=== PATIENT | male | born 1955 | race Caucasian/White ===

== ENCOUNTER 2018-12-16 01:50 | Outpatient (CLI) | payer BC, SELFPAY ==
[2018-12-16 11:17] LABS: Calculated LDL 165 mg/dL; Cholesterol 242 mg/dL (50-200); HDL Cholesterol 63 mg/dL (40-60); Triglyceride 72 mg/dL (30-150)
[2018-12-20 08:09] LABS: PSA, Screening 0.4 ng/mL (0.0-4.5)
== END 2018-12-16 02:10 ==
PROVIDERS: PCP Emergency Medicine; Visit Provider Emergency Medicine
DX: Z00.00 Encounter for general adult medical examination without abnormal findings (principal); Z13.220 Encounter for screening for lipoid disorders; Z12.5 Encounter for screening for malignant neoplasm of prostate
CPT/HCPCS: 36415; 80061; 84153

== ENCOUNTER 2019-11-24 20:21 | Outpatient (REF) | payer BC, SELFPAY ==
[2019-11-27 14:57] LABS: Calculated LDL 186 mg/dL (<100); Cholesterol 270 mg/dL (<200); HDL Cholesterol 55 mg/dL (40-60); Triglyceride 145 mg/dL (<150)
== END 2019-11-24 20:41 ==
LOC: LBN 20:21
PROVIDERS: PCP Emergency Medicine; Visit Provider Emergency Medicine
DX: E78.5 Hyperlipidemia, unspecified (principal)
CPT/HCPCS: 80061

== ENCOUNTER 2020-12-05 16:10 | Outpatient (REF) | payer BC, SELFPAY ==
[2020-12-05 15:27] LABS: Calculated LDL 181 mg/dL (<100); Cholesterol 263 mg/dL (<200); HDL Cholesterol 62 mg/dL (40-60); Triglyceride 102 mg/dL (<150)
== END 2020-12-05 16:11 | disposition home or self-care (01) ==
LOC: LBN 16:10
PROVIDERS: PCP Emergency Medicine; Visit Provider Emergency Medicine
DX: E78.5 Hyperlipidemia, unspecified (principal)
CPT/HCPCS: 80061

== ENCOUNTER 2021-06-16 01:30 | Outpatient (CLI) | payer BC, SELFPAY ==
[2021-06-16 13:02] LABS: Calculated LDL 104 mg/dL (<100); Cholesterol 185 mg/dL (<200); HDL Cholesterol 68 mg/dL (40-60); Triglyceride 68 mg/dL (<150)
[2021-06-18 12:23] LABS: Apolipoprotein B, S 81 mg/dL
== END 2021-06-16 01:31 | disposition home or self-care (01) ==
LOC: LOS 01:30
PROVIDERS: PCP Family Medicine; Visit Provider Internal Medicine Cardiovascular Disease
DX: E78.00 Pure hypercholesterolemia, unspecified (principal)
CPT/HCPCS: 36415; 80061; 82172

== ENCOUNTER 2021-12-14 09:36 | Emergency (ER) | payer BC, SELFPAY ==
[2021-12-14 10:07] VITALS: BP 154/84; PULSE 74; RESP 20; TEMP 36.7; O2SAT 99
--- NOTE | 2021-12-14 10:30 | DI.CT_ITS ---
Exam(s) CT ABDOMEN PELVIS W EXAM: CT ABDOMEN PELVIS W CLINICAL HISTORY: hernia, left groin pain. TECHNIQUE: Imaging Protocol: Axial computed tomography images with coronal and sagittal reformatted images were created and reviewed CONTRAST MATERIAL: Intravenous: Omnipaque 100cc Oral: None COMPARISON: No exams were available for comparison FINDINGS: VISUALIZED LUNG BASES: No nodules nor pleural effusions evident. ABDOMEN: There is no ascites. LIVER: There are no focal hepatic lesions evident . GALLBLADDER/BILIARY: No obvious gallbladder pathology. CBD is not dilated. PANCREAS: No evidence of pancreatic mass nor dilatation of the pancreatic duct. SPLEEN: Spleen is not enlarged. No obvious intrasplenic lesions. Splenic and portal veins are paten t. ADRENALS: There are no significant adrenal masses. KIDNEYS:No cysts evident. No solid renal masses. No calculi nor hydronephrosis.. ABDOMINAL AORTA: Calcified but not enlarged. Also no dilatation of the iliac arteries. LYMPH NODES:There is no retroperitoneal nor paraaortic adenopathy. ABDOMINAL WALL: There is right inguinal hernia mesh noted. No hernia on the right side. However, th ere is a fat only containing hernia inguinal hernia on the left side which measures 3.5 cm length by 2.0 cm wide. No bowel loops in the hernia sac. GI: There is no evidence of bowel obstruction, free air, nor abscess. PELVIS: GI: No evidence of appendicitis.No evidence of sigmoid diverticulitis. LYMPH NODES: There is no intrapelvic nor inguinal adenopathy. REPRODUCTIVE: Prostate not enlarged. Seminal vesicles unremarkable. URINARY BLADDER: No calculi nor obvious masses evident OSSEOUS: No significant osseous lesions. Advanced disc space narrowing at L5-S1 and L3-4 levels. Mild degenerative anterolisthesis L4 upon L5 . IMPRESSION: 1. There is a fat only containing left inguinal hernia. Hernia sac measures 3.5 cm length by 2 cm wi de. 2. There is evidence of right inguinal hernia repair. 3. 4. RADIATION DOSE DELIVERED: 852.42mGy.cm Total DLP DATA REPOSITORY: All CT scans at this facility are submitted to the National Radiology Data Registry (NRDR) Dose Index Registry (DIR) with the [employer] (ACR). RADIATION OPTIMIZATION: All CT scans at this facility use at least one of these dose optimization te chniques: automated exposure control; mA and/or kV adjustment per patient size (includes targeted exa ms where dose is matched to clinical indication); or iterative reconstruction.
[2021-12-14 11:22] LABS: Abs Immature Grans 0.01 10^3/uL (0.0-0.06); Absolute Basophil Count 0.01 10^3/uL (0.0-0.2); Absolute Eosinophil Count 0.04 10^3/uL (0.0-0.7); Absolute Lymphocyte Count 1.95 10^3/uL (1.2-3.4); Absolute Monocyte Count 0.55 10^3/uL (0.1-0.8); Absolute Neutrophil Count 2.76 10^3/uL (1.2-6.7); Basophils % 0.2; Eosinophils % 0.8; HCT 43.4 % (40.0-50.0); HGB 15.2 g/dL (13.5-17.5); Immature Grans % 0.2; Lymphocytes % 36.7; MCH 33.9 pg (27.0-33.0); MCV 97 fL (80-95); MPV 9.6 fL (8.0-11.0); Monocytes % 10.3; Neutrophils % 51.8; Platelet Count 206 10^3/uL (130-400); RBC 4.49 10^6/uL (4.36-5.78); RDW 11.8 % (11.8-14.1); RDW-SD 42.2 fL; WBC 5.32 10^3/uL (4.4-10.8)
[2021-12-14] MEDS: ACETAMINOPHEN 1,000 MG/100 ML BTL 400 MG IVPB (11:28)
[2021-12-14] MEDS: HYDROmorphone 2 MG/ML SYR 0.5 MG IVP (11:29)
[2021-12-14] MEDS: Normal Saline Flush 10 ML SYR IVP (11:32)
[2021-12-14] MEDS: Omnipaque 350 MG/ML 100 ML BTL IJ (11:33)
[2021-12-14 11:37] LABS: ALT 20 U/L (16-63); AST 15 U/L (15-37); Alkaline Phosphatase 70 U/L (46-116); Anion Gap 5.9 mmol/L (3-11); BUN 18 mg/dL (7-18); Bilirubin, Total 0.5 mg/dL (0.2-1.0); CO2 30.1 mmol/L (21.0-32.0); CREATININE 1.1 mg/dL (0.70-1.30); Calcium 8.8 mg/dL (8.5-10.1); Chloride 107 mmol/L (98-107); Estimated GFR 74.04 (mL/min/1.73m2); Glucose 103 mg/dL (74-106); Lipase 66 U/L (73-393); Potassium 4.3 mmol/L (3.5-5.1); Sodium 143 mmol/L (136-145); Total Protein 6.9 g/dL (6.4-8.2)
--- NOTE | 2021-12-14 12:16 | DI.VRAD_ITS ---
PROCEDURE INFORMATION: Exam: CT Abdomen And Pelvis With Contrast Exam date and time: 12/14/2021 12:40 PM Age: 66 years old Clinical indication: Other: Hernia, left groin pain TECHNIQUE: Imaging protocol: Computed tomography of the abdomen and pelvis with contrast. Radiation optimization: All CT scans at this facility use at least one of these dose optimization techniques: automated exposure control; mA and/or kV adjustment per patient size (includes targeted exams where dose is matched to clinical indication); or iterative reconstruction. Contrast material: OMNIPAQUE 350; Contrast volume: 100 ml; Contrast route: INTRAVENOUS (IV); COMPARISON: No relevant prior studies available. FINDINGS: Lungs: The visualized lung bases demonstrate minor dependent atelectasis. Liver: Normal. No mass. Gallbladder and bile ducts: No gallstones are evident, but ultrasound would be more sensitive. No gross biliary ductal dilatation. Pancreas: Normal. No ductal dilation. Spleen: Normal. No splenomegaly. Adrenal glands: Normal. No mass. Kidneys and ureters: Normal. No hydronephrosis. Stomach and bowel: The unopacified small bowel is not significantly distended to suggest obstruction. The large bowel is grossly unremarkable in appearance. Appendix: The appendix appears normal. Intraperitoneal space: No free air or significant free fluid. Vasculature: The abdominal aorta is nonaneurysmal. Atherosclerotic vascular calcifications are noted. Lymph nodes: Unremarkable. No enlarged lymph nodes. Urinary bladder: Unremarkable. Reproductive: Surgical clips are present in the scrotum. Bones/joints: Degenerative changes involve the spine, sacroiliac joints and hips. Soft tissues: There are operative changes of right inguinal hernia repair. A small fat containing left inguinal hernia is present. IMPRESSION: 1. Small fat containing left inguinal hernia. 2. Operative changes of right inguinal hernia repair. Dictated and Authenticated by: Jus Vasquez MD. Ordering:CLEM Quesada MD
[2021-12-14 16:57] VITALS: BP 154/84; PULSE 74; RESP 20; TEMP 36.7; O2SAT 99
--- NOTE | 2021-12-15 10:25 | SCONE_ITS ---
Date of service: 12/14/21 Time of Service: 15:00 Assessment and Plan Assessment and plan (1) Left inguinal hernia: Status: Chronic Assessment and plan: Mr. Mejia is a pleasant 66-year-old gentleman with left inguinal pain as well as lower extremity pain. I think his pain is multifactorial. Part of his pain is most likely from his inguinal hernia and it may have been incarcerated last night but certainly is not today. I think it safe for him to get discharged on Tylenol and ibuprofen and then have him come back as an outpatient for a repair. He already has an appointment with Dr. Villegas in our office on Wednesday. I think the lower extremity pain that he is having is most likely due to his spinal stenosis. Recommend no more lifting until his hernia has been repaired. We will see him in the office on Wednesday and schedule him for surgery. (2) Lumbar back pain with radiculopathy affecting left lower extremity: Status: Chronic History of Present Illness Narrative: Mr Mejia is a pleasant 66-year-old gentleman who comes into the emergency department today with worsening left lower quadrant/groin pain. He complains of pain shooting down his leg medially and laterally. He has a known left inguinal hernia which has bothered him occasionally but now it is much worse. He states last night it was quite painful and it was hard for him to sleep. He has been doing some lifting lately because they are packing for a move. He denies any fevers, nausea, vomiting or changes in bowel habits. He does have a history of spinal stenosis. CT scan was done which does show a left inguinal hernia. There is no bowel or fat within the hernia defect. Consults Consult date: 12/14/21 Requesting physician: Dipak Bansal Review of Systems All systems reviewed & are unremarkable except as noted in HPI and below PFSH All Active Problems Lumbar back pain with radiculopathy affecting left lower extremity (Chronic) Degenerative joint disease (DJD) of lumbar spine (Chronic) Left inguinal hernia (Chronic) Hyperlipemia (Chronic) Acquired hallux rigidus (Chronic) Surgical History S/P arthroscopy of right shoulder Labral tear repair S/P right inguinal hernia repair x 2 Status post arthroscopy of shoulder Family History Mother No problems noted. Father , [place] at age 68. Essential hypertension Heart disease Hyperlipidemia Myocardial infarction Brother Essential hypertension Heart disease Myocardial infarction Maternal Grandfather , aage 70 Heart disease Myocardial infarction Paternal Grandfather , age 49 Heart disease Maternal Grandmother , age 90? No problems noted. Paternal Grandmother , age 90? No problems noted. Sister No problems noted. Brother Essential hypertension Alcohol abuse Son No problems noted. Son No problems noted. Daughter No problems noted. Daughter No problems noted. 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 Pets and animals: Yes Pets and animals: cat(s) Sexually active: Yes Do you think of yourself as: straight/heterosexual Current gender identity: male What is your relationship status?: How often do you talk on the phone with friends or family?: three or more times per week How often do you get together with friends or relatives?: once per week How often do you attend congregation or restorationist services?: decline to answer Do you belong to any clubs or organized social groups?: yes Panel score (0-1 are the most socially isolated patients): 3 What type of physical activity do you participate in: walking, weight lifting and other Details: golf, pickleball Frequency: daily Nakia/Alevism: [employer] Special nakia needs: No Seatbelt use: always Drive intox or ride w/intox test driver: No Do you feel safe at home: Yes Do you feel safe in your relationship?: Yes Victim of physical abuse: No Victim of emotional abuse: No Victim of sexual abuse: No Would you like helpful sources: No Exam Const General: cooperative, comfortable and no acute distress Orientation: alert and oriented x3 HENMT Head: normocephalic and atraumatic Resp Effort & Inspection: normal respiratory effort Auscultation: clear to auscultation bilaterally Cardio Rate: regular rate Rhythm: regular rhythm GI Inspection: normal to inspection Palpation: soft, no hepatosplenomegaly, hernia (reducible LIH) and nontender Auscultation: normal bowel sounds Results Last Vital Signs Temp 98.1 F 12/14/21 16:57 Pulse 74 12/14/21 16:57 Resp 20 12/14/21 16:57 BP 154/84 H 12/14/21 16:57 Pulse Ox 99 12/14/21 16:57 Labs Result diagrams: 12/14/21 11:12 12/14/21 11:12 Labs: Laboratory Results - last 24 hr 12/14/21 12/14/21 11:12 11:12 WBC 5.32 RBC 4.49 Hgb 15.2 Hct 43.4 MCV 97 H MCH 33.9 H MCHC 35.0 RDW 11.8 Plt Count 206 MPV 9.6 Immature Gran % 0.2 Neutrophils % 51.8 Lymphocytes % 36.7 Monocytes % 10.3 Eosinophils % 0.8 Basophils % 0.2 Nucleated RBC % 0.0 Absolute Neutrophils 2.76 Absolute Lymphocytes 1.95 Absolute Monocytes 0.55 Absolute Eosinophils 0.04 Absolute Basophils 0.01 Sodium 143 Potassium 4.3 Chloride 107 Carbon Dioxide 30.1 Anion Gap 5.9 BUN 18 Creatinine 1.1 Est GFR (CKD-EPI 2020) 74.04 Glucose 103 Calcium 8.8 Total Bilirubin 0.5 AST 15 ALT 20 Alkaline Phosphatase 70 Total Protein 6.9 Albumin 4.0 Lipase [address] scan report/results: report reviewed and image reviewed
--- NOTE | 2021-12-23 12:37 | ED.GENADUL_ITS ---
Discharge Plan Disposition Patient Disposition: HOME Condition: Stable Discharge Details Clinical Impression: Left inguinal hernia Primary Care Provider: Riri Kennedy ED Provider: Dipak Bansal Home Meds and New Rx's Prescriptions: No Action cholecalciferol (vitamin D3) 2,000 unit capsule 2,000 unit PO DAILY Label Comments: 11/15/18winter mo. ernestine magnesium 250 mg tablet 250 mg PO DAILY rosuvastatin 5 mg tablet 5 mg PO DAILY phytonadione (vitamin K1) 100 MCG tablet 200 mcg PO DAILY ascorbic acid (vitamin C) [Vitamin C] 500 MG tablet,chewable 500 mg PO DAILY Fish Oil 1 EACH capsule 1 ea PO DAILY coenzyme [id number] E [Co Q-10 (with Vit E)] 1 EACH capsule 1 ea PO DAILY turmeric-turmeric root extract 500 MG capsule 500 mg PO DAILY garlic Capsule 500 mg PO DAILY Discharge Instructions Instructions: Inguinal Hernia (ED) Additional Instructions: If you develop any new or significant worsening of symptoms fever chills, persistent vomiting, or other concerns feel free to return the emergency department for reassessment otherwise follow-up with general surgery as discussed Referrals: Gretchen Streeter MD [ [facility] STAFF PHYSICIAN] - 12/16/21 Discharge Data Discharge Date/Time-TO BE ENTERED AT DEPARTURE: 12/14/21 13:24 Medical Decision Making 66-year-old male with history of prior right inguinal hernia status postrepair here with left inguinal pain worsening for the past 3 days. Concern for incarcerated hernia. CT of the abdomen pelvis was obtained and interpreted by radiology: IMPRESSION: 1. Small fat containing left inguinal hernia. 2. Operative changes of right inguinal hernia repair. I consulted on-call general surgeon, Dr. Streeter who evaluated the patient. She recommends discharge with outpatient follow-up in her clinic. Discharge instructions were reviewed with the patient. Lab Data Lab results reviewed: Yes I reviewed the patient's lab results. Labs: Laboratory Tests Range/Units 12/14/21 12/14/21 11:12 11:12 WBC (4.4-10.8) 10^3/uL 5.32 RBC (4.36-5.78) 10^6/uL 4.49 Hgb (13.5-17.5) g/dL 15.2 Hct (40.0-50.0) % 43.4 MCV (80-95) fL 97 H MCH (27.0-33.0) pg 33.9 H MCHC (32.0-36.0) % 35.0 RDW (11.8-14.1) % 11.8 Plt Count (130-400) 10^3/uL 206 MPV (8.0-11.0) fL 9.6 Immature Gran % 0.2 Neutrophils % 51.8 Lymphocytes % 36.7 Monocytes % 10.3 Eosinophils % 0.8 Basophils % 0.2 Nucleated RBC % (0.0-0.3) % 0.0 Absolute Neutrophils (1.2-6.7) 10^3/uL 2.76 Absolute Lymphocytes (1.2-3.4) 10^3/uL 1.95 Absolute Monocytes (0.1-0.8) 10^3/uL 0.55 Absolute Eosinophils (0.0-0.7) 10^3/uL 0.04 Absolute Basophils (0.0-0.2) 10^3/uL 0.01 Sodium (136-145) mmol/L 143 Potassium (3.5-5.1) mmol/L 4.3 Chloride (98-107) mmol/L 107 Carbon Dioxide (21.0-32.0) mmol/L 30.1 Anion Gap (3-11) mmol/L 5.9 BUN (7-18) mg/dL 18 Creatinine (0.70-1.30) mg/dL 1.1 Est GFR (CKD-EPI 2020) (mL/min/1.73m2) 74.04 Glucose (74-106) mg/dL 103 Calcium (8.5-10.1) mg/dL 8.8 Total Bilirubin (0.2-1.0) mg/dL 0.5 AST (15-37) U/L 15 ALT (16-63) U/L 20 Alkaline Phosphatase (46-116) U/L 70 Total Protein (6.4-8.2) g/dL 6.9 Albumin (3.4-5.0) g/dL 4.0 Lipase (73-393) U/L 66 HPI General Mode of arrival: ambulatory . Date/Time Provider Initiated Documentation: 12/14/21 10:34 . Limitations to Documentation: no limitations . Information obtained by: patient . HPI Narrative: 66-year-old male presents with chief complaint of left sided groin pain. Patient notes pain has been worsening over the past 3 days. Pain is severe. Radiates down his left leg. Described as shooting. No associated testicular sw elling. Patient is concerned for hernia. Related Data Home Medications Medication Instructions Recorded Confirmed ascorbic acid (vitamin C) 500 mg 500 mg PO DAILY 09/25/14 12/16/21 chewable tablet (Vitamin C) coenzyme [id number] E 100 mg-5 1 ea PO DAILY 09/25/14 12/16/21 unit capsule (Co Q-10 (with Vit E)) omega-3 fatty acids-fish oil 340 1 ea PO DAILY 09/25/14 12/16/21 mg-1,000 mg capsule (Fish Oil) phytonadione (vitamin K1) 100 mcg 200 mcg PO DAILY 09/25/14 12/16/21 tablet turmeric 450 mg-turmeric root 500 mg PO DAILY 11/19/15 12/16/21 extract 50 mg capsule cholecalciferol (vitamin D3) 50 2,000 unit PO DAILY 11/15/18 12/16/21 mcg (2,000 unit) capsule magnesium 250 mg tablet 250 mg PO DAILY 11/15/18 12/16/21 rosuvastatin 5 mg tablet 5 mg PO DAILY 12/08/21 12/16/21 garlic 500 mg PO DAILY 12/14/21 12/16/21 Allergies Allergy/AdvReac Type Severity Reaction Status Date / Time shellfish derived Allergy Severe N/V/D Verified 12/16/21 10:20 gentamicin Allergy Intermediate AFFECTED Verified 12/16/21 10:20 EYES doxycycline Allergy Unknown Verified 12/16/21 10:20 Penicillins Allergy Unknown Verified 12/16/21 10:20 sulfamethoxazole Allergy Unknown Verified 12/16/21 10:20 trimethoprim Allergy Unknown Verified 12/16/21 10:20 tramadol Allergy Verified 12/16/21 10:20 General Stated Complaint: Abd Prob WAN: 3 Review of Systems All systems reviewed & are unremarkable except as noted in HPI and below Constitutional Constitutional: Denies fever(s) Gastrointestinal Gastrointestinal: Reports as per HPI and Denies abdominal pain PFSH All Active Problems Lumbar back pain with radiculopathy affecting left lower extremity (Chronic) Degenerative joint disease (DJD) of lumbar spine (Chronic) Left inguinal hernia (Chronic) Hyperlipemia (Chronic) Acquired hallux rigidus (Chronic) Surgical History S/P arthroscopy of right shoulder Labral tear repair S/P right inguinal hernia repair x 2 Status post arthroscopy of shoulder Family History Mother No problems noted. Father , [place] at age 68. Essential hypertension Heart disease Hyperlipidemia Myocardial infarction Brother Essential hypertension Heart disease Myocardial infarction Maternal Grandfather , aage 70 Heart disease Myocardial infarction Paternal Grandfather , age 49 Heart disease Maternal Grandmother , age 90? No problems noted. Paternal Grandmother , age 90? No problems noted. Sister No problems noted. Brother Essential hypertension Alcohol abuse Son No problems noted. Son No problems noted. Daughter No problems noted. Daughter No problems noted. 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 Pets and animals: Yes Pets and animals: cat(s) Sexually active: Yes Do you think of yourself as: straight/heterosexual Current gender identity: male What is your relationship status?: How often do you talk on the phone with friends or family?: three or more times per week How often do you get together with friends or relatives?: once per week How often do you attend synagogue or yazidism services?: decline to answer Do you belong to any clubs or organized social groups?: yes Panel score (0-1 are the most socially isolated patients): 3 What type of physical activity do you participate in: walking, weight lifting and other Details: golf, pickleball Frequency: daily Nakia/Protestant: Gnosticism Special nakia needs: No Seatbelt use: always Drive intox or ride w/intox courtesy bus driver: No Do you feel safe at home: Yes Do you feel safe in your relationship?: Yes Victim of physical abuse: No Victim of emotional abuse: No Victim of sexual abuse: No Would you like helpful sources: No Exam Const General: cooperative HENMT Mouth: moist mucous membranes Eyes Conjunctivae: normal conjunctivae Sclera: normal sclerae Neck Neck: trachea midline and supple Resp Auscultation: clear to auscultation bilaterally, no rales, no rhonchi and no wheezes Cardio Rate: regular rate and not tachycardic Rhythm: regular rhythm GI Palpation: soft, not firm, no guarding, no masses and not rigid Other: Left inguinal area tender to palpation with no appreciable hernia on palpation Skin General skin exam: no rashes or lesions noted Neuro General: patient alert, patient awake, patient oriented x3 and tone normal Extrem General: no edema Psych Appearance: grossly normal Mental Status: mental status grossly normal Course Vital Signs Vital signs: Vital Signs Temperature 36.7 C 12/14/21 10:07 Pulse 74 12/14/21 10:07 Respiratory Rate 20 12/14/21 10:07 Blood Pressure 154/84 H 12/14/21 10:07 Pulse Oximetry 99 12/14/21 10:07 Temperature 36.7 C 12/14/21 16:57 Temperature Source Tympanic 12/14/21 10:07 Pulse 74 12/14/21 16:57 Respiratory Rate 20 12/14/21 16:57 Respiratory Effort 12/14/21 10:12 Blood Pressure 154/84 H 12/14/21 16:57 Pulse Oximetry 99 12/14/21 16:57 Pain Level 7 12/14/21 11:29 Lab/Test Results Lab/Test Results: Laboratory Tests Range/Units 12/14/21 12/14/21 11:12 11:12 WBC (4.4-10.8) 10^3/uL 5.32 RBC (4.36-5.78) 10^6/uL 4.49 Hgb (13.5-17.5) g/dL 15.2 Hct (40.0-50.0) % 43.4 MCV (80-95) fL 97 H MCH (27.0-33.0) pg 33.9 H MCHC (32.0-36.0) % 35.0 RDW (11.8-14.1) % 11.8 Plt Count (130-400) 10^3/uL 206 MPV (8.0-11.0) fL 9.6 Immature Gran % 0.2 Neutrophils % 51.8 Lymphocytes % 36.7 Monocytes % 10.3 Eosinophils % 0.8 Basophils % 0.2 Nucleated RBC % (0.0-0.3) % 0.0 Absolute Neutrophils (1.2-6.7) 10^3/uL 2.76 Absolute Lymphocytes (1.2-3.4) 10^3/uL 1.95 Absolute Monocytes (0.1-0.8) 10^3/uL 0.55 Absolute Eosinophils (0.0-0.7) 10^3/uL 0.04 Absolute Basophils (0.0-0.2) 10^3/uL 0.01 Sodium (136-145) mmol/L 143 Potassium (3.5-5.1) mmol/L 4.3 Chloride (98-107) mmol/L 107 Carbon Dioxide (21.0-32.0) mmol/L 30.1 Anion Gap (3-11) mmol/L 5.9 BUN (7-18) mg/dL 18 Creatinine (0.70-1.30) mg/dL 1.1 Est GFR (CKD-EPI 2020) (mL/min/1.73m2) 74.04 Glucose (74-106) mg/dL 103 Calcium (8.5-10.1) mg/dL 8.8 Total Bilirubin (0.2-1.0) mg/dL 0.5 AST (15-37) U/L 15 ALT (16-63) U/L 20 Alkaline Phosphatase (46-116) U/L 70 Total Protein (6.4-8.2) g/dL 6.9 Albumin (3.4-5.0) g/dL 4.0 Lipase (73-393) U/L 66 PAWSS Have you Been Recently Intoxicated or Drunk Within the Last 30 days?: No Have you Ever Experienced Previous Episodes of Alcohol Withdrawal?: No Have you ever Experienced Withdrawal Seizures?: No Have you ever Experienced Delirium Tremens(DT)s?: No Have you ever undergone Alcohol Rehabilitation Treatment (i.e, inpt ot outpatient treatment programs)?: No Have you ever Experienced Blackouts?: No Have you ever Combined Alcohol with other Downers within the last 90 days?: No Have you ever Combined Alcohol with any other Substance of Abuse during the last 90 days?: No Result: 0
== END 2021-12-14 13:24 | disposition home or self-care (01) ==
PROVIDERS: Emergency Provider Student in an Organized Health Care Education/Training Program; PCP Nurse Practitioner Family
DX: K40.90 Unilateral inguinal hernia, without obstruction or gangrene, not specified as recurrent (principal); Z98.890 Other specified postprocedural states
CPT/HCPCS: 36415; 80053; 83690; 96374; 96375; 99285; 74177; 85025; 99284; J0131; J1170; J3490

== ENCOUNTER 2021-12-29 03:05 | Outpatient (CLI) | payer BC, SELFPAY ==
[2021-12-29 13:43] LABS: ALT 27 U/L (16-63); AST 20 U/L (15-37); Albumin 4.3 g/dL (3.4-5.0); Alkaline Phosphatase 88 U/L (46-116); Anion Gap 5.4 mmol/L (3-11); BUN 16 mg/dL (7-18); Bilirubin, Total 0.5 mg/dL (0.2-1.0); CO2 31.6 mmol/L (21.0-32.0); CREATININE 1.1 mg/dL (0.70-1.30); Calcium 9.4 mg/dL (8.5-10.1); Calculated LDL 118 mg/dL (<100); Chloride 102 mmol/L (98-107); Cholesterol 200 mg/dL (<200); Estimated GFR 74.04 (mL/min/1.73m2); Glucose 106 mg/dL (74-106); HDL Cholesterol 62 mg/dL (40-60); Potassium 4.3 mmol/L (3.5-5.1); Sodium 139 mmol/L (136-145); Total Protein 7.5 g/dL (6.4-8.2); Triglyceride 102 mg/dL (<150)
[2021-12-29 13:55] LABS: Hemoglobin A1C 5.4 % (<5.7)
[2021-12-29 22:00] LABS: PSA, Screening 0.6 ng/mL (<=4.5)
== END 2021-12-29 03:06 | disposition home or self-care (01) ==
LOC: LOS 03:06
PROVIDERS: Emergency Medicine; PCP Nurse Practitioner Family; Visit Provider Nurse Practitioner Family
DX: Z00.00 Encounter for general adult medical examination without abnormal findings (principal); E78.5 Hyperlipidemia, unspecified; Z12.5 Encounter for screening for malignant neoplasm of prostate; Z13.1 Encounter for screening for diabetes mellitus; R03.0 Elevated blood-pressure reading, without diagnosis of hypertension
CPT/HCPCS: 36415; 80053; 80061; 84153; 83036